=== PATIENT | female | born 1950 ===

== ENCOUNTER 2019-09-22 09:20 | Outpatient (REF) | payer MEDICARE, MEDICAID, SELFPAY ==
[2019-09-23 09:46] LABS: Absolute Basophil Count 0.04 k/cumm (0.0-0.2); Absolute Eosinophil Count 0.41 k/cumm (0.0-0.7); Absolute Lymphocyte Count 0.98 k/cumm (1.2-3.4); Absolute Monocyte Count 0.46 k/cumm (0.11-0.7); Absolute Neutrophil Count 4.38 k/cumm (1.2-6.7); Basophils % 0.6; Eosinophils % 6.5; HGB 11.8 g/dL (12.0-15.5); Immature Grans % 0.3 %; Lymphocytes % 15.6; Mean Corp. HGB Concentration 34.7 g/dL (32.0-36.0); Mean Corpuscular Volume 83.5 fL (80-95); Monocytes % 7.3; Neutrophils % 69.7; Platelet Count 224 x1000/uL (130-400); RBC 4.07 m/cumm (4.00-5.20); RBC Distribution Width 12.1 % (11.7-14.6); White Blood Cell Count 6.28 k/cumm (4.4-10.8)
[2019-09-23 09:47] LABS: Abs Immature Grans 0.02 k/cumm (0.0-0.09)
[2019-09-23 09:49] LABS: Albumin 2.8 g/dL (3.4-5.0); BUN 11 mg/dL (7-18); CREATININE 1.16 mg/dL (0.55-1.02); Estimated GFR 46.46 (mL/min/1.73m2); Glucose 111 mg/dL (74-106); Total Protein 6.5 g/dL (6.4-8.2)
[2019-09-23 09:50] LABS: Alkaline Phosphatase 84 U/L (46-116); Bilirubin, Total 0.5 mg/dL (0.2-1.0); Sodium 129 mmol/L (136-145)
[2019-09-23 09:51] LABS: ALT 30 U/L (14-59); AST 26 U/L (15-37); Anion Gap 9.3 mmol/L (3-11); CO2 27.7 mmol/L (21.0-32.0); Chloride 92 mmol/L (98-107); Potassium 2.4 mmol/L (3.5-5.1)
== END 2019-09-22 09:40 ==
LOC: LBN 09:20
PROVIDERS: PCP Nurse Practitioner Family; Visit Provider Nurse Practitioner Family
DX: R53.83 Other fatigue (principal); E87.6 Hypokalemia
CPT/HCPCS: 80053; 85025

== ENCOUNTER 2019-09-23 11:35 | Outpatient (REF) | payer MEDICARE, MEDICAID, SELFPAY ==
[2019-09-25 10:24] LABS: Campylobacter PCR Negative (Negative); Salmonella PCR Negative (Negative); Shiga Toxin PCR Negative (Negative); Shigella/Enteroinvasive Ecoli Negative (Negative)
== END 2019-09-23 11:55 ==
LOC: NCHCN 11:35
PROVIDERS: PCP Nurse Practitioner Family; Visit Provider Nurse Practitioner Family
DX: A08.4 Viral intestinal infection, unspecified (principal)
CPT/HCPCS: 87329; 87505; 87177; 87324

== ENCOUNTER 2019-09-28 12:44 | Outpatient (REF) | payer MEDICARE, MEDICAID, SELFPAY ==
[2019-09-28 20:54] LABS: HCT 34.6 % (36.0-46.0); HGB 11.7 g/dL (12.0-15.5); Mean Corp. HGB Concentration 33.8 g/dL (32.0-36.0); Mean Corpuscular Volume 85.6 fL (80-95); Mean Platelet Volume 9.7 fL (8.0-11.0); Platelet Count 316 x1000/uL (130-400); RBC 4.04 m/cumm (4.00-5.20); RBC Distribution Width 12.9 % (11.7-14.6); White Blood Cell Count 6.68 k/cumm (4.4-10.8)
[2019-09-28 21:08] LABS: ALT 30 U/L (14-59); AST 19 U/L (15-37); Albumin 2.6 g/dL (3.4-5.0); Alkaline Phosphatase 102 U/L (46-116); Anion Gap 10.2 mmol/L (3-11); BUN 13 mg/dL (7-18); Bilirubin, Total 0.6 mg/dL (0.2-1.0); CO2 22.8 mmol/L (21.0-32.0); CREATININE 1.64 mg/dL (0.55-1.02); Calcium 8.3 mg/dL (8.5-10.1); Chloride 96 mmol/L (98-107); Estimated GFR 31.15 (mL/min/1.73m2); Glucose 117 mg/dL (74-106); Potassium 4.7 mmol/L (3.5-5.1); Sodium 129 mmol/L (136-145); Total Protein 6.3 g/dL (6.4-8.2)
[2019-09-28 21:12] LABS: Absolute Lymphocyte Count 0.67 k/cumm (1.2-3.4); Absolute Monocyte Count 0.73 k/cumm (0.11-0.7); Absolute Neutrophil Count 4.34 k/cumm (1.2-6.7); Atypical Lymphocytes % 1
[2019-09-28 21:13] LABS: Absolute Eosinophil Count 0.94 k/cumm (0.0-0.7); Diff Comment Manual Differential; RBC Morphology Normal
[2019-09-28 21:48] LABS: Hemoglobin A1C 6.4 % (3.8-5.6)
== END 2019-09-28 13:04 ==
LOC: NCHCN 12:44
PROVIDERS: PCP Nurse Practitioner Family; Visit Provider Nurse Practitioner Family
DX: R73.9 Hyperglycemia, unspecified (principal); E87.6 Hypokalemia; R53.83 Other fatigue
CPT/HCPCS: 80053; 83036; 85025

== ENCOUNTER 2019-09-29 21:16 | Outpatient (REF) | payer MEDICARE, MEDICAID, SELFPAY ==
[2019-09-29 21:01] LABS: POTASSIUM,URINE RANDOM 22 mmol/L
[2019-09-29 21:22] LABS: COMMENT (LAB VIEW ONLY) 129.29 mg/dL; Prot/Crea Ur Ratio 0.46
== END 2019-09-29 21:36 ==
LOC: NCHCN 21:16
PROVIDERS: PCP Nurse Practitioner Family; Visit Provider Nurse Practitioner Family
DX: E87.6 Hypokalemia (principal); E87.1 Hypo-osmolality and hyponatremia
CPT/HCPCS: 82565; 84133; 84156

== ENCOUNTER 2019-10-04 11:55 | Outpatient (REF) | payer MEDICARE, MEDICAID, SELFPAY ==
[2019-10-04 19:03] LABS: POTASSIUM,URINE RANDOM 42 mmol/L
[2019-10-04 19:05] LABS: Anion Gap 12.5 mmol/L (3-11); BUN 50 mg/dL (7-18); CO2 18.5 mmol/L (21.0-32.0); Calcium 8.7 mg/dL (8.5-10.1); Chloride 98 mmol/L (98-107); Estimated GFR 11.71 (mL/min/1.73m2); Glucose 109 mg/dL (74-106); PROTEIN 99.4 mg/dL; Sodium 129 mmol/L (136-145)
[2019-10-04 19:25] LABS: COMMENT (LAB VIEW ONLY) 162.11 mg/dL; Prot/Crea Ur Ratio 0.61
[2019-10-04 19:34] LABS: CREATININE 3.83 mg/dL (0.55-1.02)
[2019-10-04 19:39] LABS: Potassium 6.3 mmol/L (3.5-5.1)
== END 2019-10-04 12:15 ==
LOC: NCHCN 11:55
PROVIDERS: PCP Nurse Practitioner Family; Visit Provider Nurse Practitioner Family
DX: R19.7 Diarrhea, unspecified (principal); E87.1 Hypo-osmolality and hyponatremia; E87.6 Hypokalemia
CPT/HCPCS: 80048; 82565; 84133; 84156

== ENCOUNTER 2019-10-14 14:44 | Outpatient (REF) | payer MEDICARE, MEDICAID, SELFPAY ==
[2019-10-14 20:54] LABS: Absolute Monocyte Count 0.65 k/cumm (0.11-0.7); Basophils % 0.5; HCT 28.7 % (36.0-46.0); HGB 9.1 g/dL (12.0-15.5); Mean Corp. HGB Concentration 31.7 g/dL (32.0-36.0); Mean Corpuscular Hemoglobin 28.4 pg (27.0-33.0); Mean Corpuscular Volume 89.7 fL (80-95); Mean Platelet Volume 8.7 fL (8.0-11.0); Platelet Count 309 x1000/uL (130-400); RBC Distribution Width 14.9 % (11.7-14.6); White Blood Cell Count 12.97 k/cumm (4.4-10.8)
[2019-10-14 21:02] LABS: ALT 13 U/L (14-59); AST 10 U/L (15-37); Albumin 2.4 g/dL (3.4-5.0); Alkaline Phosphatase 169 U/L (46-116); Anion Gap 4.7 mmol/L (3-11); BUN 12 mg/dL (7-18); Bilirubin, Total 0.3 mg/dL (0.2-1.0); CO2 27.3 mmol/L (21.0-32.0); CREATININE 1.44 mg/dL (0.55-1.02); Calcium 8.1 mg/dL (8.5-10.1); Chloride 101 mmol/L (98-107); Glucose 108 mg/dL (74-106); Potassium 3.1 mmol/L (3.5-5.1); Sodium 133 mmol/L (136-145); Total Protein 6.7 g/dL (6.4-8.2)
[2019-10-14 21:27] LABS: Absolute Basophil Count 0.06 k/cumm (0.0-0.2)
[2019-10-14 21:33] LABS: Absolute Neutrophil Count 5.06 k/cumm (1.2-6.7); Microcytosis 1+
[2019-10-14 21:34] LABS: Absolute Eosinophil Count 3.11 k/cumm (0.0-0.7); Absolute Lymphocyte Count 4.15 k/cumm (1.2-3.4); Atypical Lymphocytes % 14; Diff Comment Manual Differential
== END 2019-10-14 15:04 ==
LOC: NCHCN 14:44
PROVIDERS: PCP Nurse Practitioner Family; Visit Provider Nurse Practitioner Family
DX: N17.9 Acute kidney failure, unspecified (principal); D72.1 Eosinophilia
CPT/HCPCS: 80053; 85025

== ENCOUNTER 2019-10-20 15:14 | Outpatient (REF) | payer MEDICARE, MEDICAID, SELFPAY ==
[2019-10-20 20:31] LABS: Abs Immature Grans 0.03 k/cumm (0.0-0.09); Absolute Eosinophil Count 3.15 k/cumm (0.0-0.7); Absolute Lymphocyte Count 3.32 k/cumm (1.2-3.4); Absolute Monocyte Count 0.56 k/cumm (0.11-0.7); Absolute Neutrophil Count 3.05 k/cumm (1.2-6.7); Eosinophils % 30.9; HCT 27.9 % (36.0-46.0); HGB 8.5 g/dL (12.0-15.5); Immature Grans % 0.3 %; Lymphocytes % 32.5; Mean Corp. HGB Concentration 30.5 g/dL (32.0-36.0); Mean Corpuscular Hemoglobin 28.2 pg (27.0-33.0); Mean Corpuscular Volume 92.7 fL (80-95); Mean Platelet Volume 8.8 fL (8.0-11.0); Monocytes % 5.5; Neutrophils % 29.8; Platelet Count 363 x1000/uL (130-400); RBC 3.01 m/cumm (4.00-5.20); RBC Distribution Width 15.4 % (11.7-14.6); White Blood Cell Count 10.21 k/cumm (4.4-10.8)
[2019-10-20 20:38] LABS: ALT 15 U/L (14-59); AST 16 U/L (15-37); Albumin 2.7 g/dL (3.4-5.0); Alkaline Phosphatase 130 U/L (46-116); Anion Gap 7.3 mmol/L (3-11); BUN 9 mg/dL (7-18); Bilirubin, Total 0.2 mg/dL (0.2-1.0); CO2 29.7 mmol/L (21.0-32.0); CREATININE 1.34 mg/dL (0.55-1.02); Calcium 8.2 mg/dL (8.5-10.1); Chloride 104 mmol/L (98-107); Estimated GFR 39.33 (mL/min/1.73m2); Glucose 98 mg/dL (74-106); Potassium 3.5 mmol/L (3.5-5.1); Sodium 141 mmol/L (136-145); Total Protein 6.9 g/dL (6.4-8.2)
[2019-10-20 21:48] LABS: Diff Comment Diff Reviewed
[2019-10-20 21:49] LABS: RBC Morphology Normal
== END 2019-10-20 15:34 ==
LOC: NCHCN 15:14
PROVIDERS: PCP Nurse Practitioner Family; Visit Provider Nurse Practitioner Family
DX: N17.9 Acute kidney failure, unspecified (principal); D72.1 Eosinophilia
CPT/HCPCS: 80053; 85025

== ENCOUNTER 2019-10-27 13:44 | Outpatient (REF) | payer MEDICARE, MEDICAID, SELFPAY ==
[2019-10-27 20:19] LABS: Abs Immature Grans 0.02 k/cumm (0.0-0.09); Absolute Basophil Count 0.09 k/cumm (0.0-0.2); Absolute Eosinophil Count 1.48 k/cumm (0.0-0.7); Absolute Lymphocyte Count 2.58 k/cumm (1.2-3.4); Absolute Monocyte Count 0.64 k/cumm (0.11-0.7); Absolute Neutrophil Count 3.05 k/cumm (1.2-6.7); Basophils % 1.1; Eosinophils % 18.8; HCT 25.4 % (36.0-46.0); Immature Grans % 0.3 %; Lymphocytes % 32.8; Mean Corp. HGB Concentration 31.5 g/dL (32.0-36.0); Mean Corpuscular Hemoglobin 29.2 pg (27.0-33.0); Mean Corpuscular Volume 92.7 fL (80-95); Mean Platelet Volume 8.8 fL (8.0-11.0); Monocytes % 8.1; Neutrophils % 38.9; Platelet Count 411 x1000/uL (130-400); RBC 2.74 m/cumm (4.00-5.20); RBC Distribution Width 15.7 % (11.7-14.6); White Blood Cell Count 7.86 k/cumm (4.4-10.8)
[2019-10-27 20:28] LABS: Iron 34 ug/dL (50-170); Total Iron Binding Capacity 206 ug/dL (250-450); Transferrin Sat 17 % (15-50)
[2019-10-27 21:07] LABS: Anion Gap 8.8 mmol/L (3-11); BUN 8 mg/dL (7-18); CO2 26.2 mmol/L (21.0-32.0); CREATININE 1.28 mg/dL (0.55-1.02); Calcium 8.1 mg/dL (8.5-10.1); Chloride 105 mmol/L (98-107); Estimated GFR 41.47 (mL/min/1.73m2); Ferritin 178 ng/mL (8-252); Glucose 101 mg/dL (74-106); Potassium 3.1 mmol/L (3.5-5.1); Sodium 140 mmol/L (136-145); Vitamin B12 270 pg/mL (193-986)
[2019-10-27 21:12] LABS: ESR 42 mm/hr (0-30)
[2019-10-27 22:36] LABS: C-Reactive Protein 0.32 mg/dL (0.0-0.3)
[2019-10-31 16:03] LABS: c-ANCA Negative (Negative); p-ANCA Negative (Negative)
== END 2019-10-27 14:04 ==
LOC: NCHCN 13:44
PROVIDERS: PCP Nurse Practitioner Family; Visit Provider Internal Medicine
DX: D64.9 Anemia, unspecified (principal); D72.1 Eosinophilia; N17.9 Acute kidney failure, unspecified
CPT/HCPCS: 80048; 85652; 82607; 82728; 83540; 83550; 85025; 85045; 86140; 86160; 86255

== ENCOUNTER 2019-11-03 14:30 | Outpatient (REF) | payer MEDICARE, MEDICAID, SELFPAY ==
[2019-11-03 20:23] LABS: Abs Immature Grans 0.01 k/cumm (0.0-0.09); Absolute Basophil Count 0.04 k/cumm (0.0-0.2); Absolute Eosinophil Count 0.73 k/cumm (0.0-0.7); Absolute Lymphocyte Count 2.61 k/cumm (1.2-3.4); Absolute Monocyte Count 0.55 k/cumm (0.11-0.7); Absolute Neutrophil Count 3.34 k/cumm (1.2-6.7); Basophils % 0.5; HCT 26.4 % (36.0-46.0); Immature Grans % 0.1 %; Lymphocytes % 35.9; Mean Corp. HGB Concentration 30.3 g/dL (32.0-36.0); Mean Corpuscular Volume 92.3 fL (80-95); Mean Platelet Volume 8.9 fL (8.0-11.0); Monocytes % 7.6; Neutrophils % 45.9; Platelet Count 356 x1000/uL (130-400); RBC 2.86 m/cumm (4.00-5.20); RBC Distribution Width 16.2 % (11.7-14.6); White Blood Cell Count 7.28 k/cumm (4.4-10.8)
[2019-11-03 20:49] LABS: Anion Gap 7.9 mmol/L (3-11); BUN 8 mg/dL (7-18); CO2 26.1 mmol/L (21.0-32.0); CREATININE 1.18 mg/dL (0.55-1.02); Calcium 8.2 mg/dL (8.5-10.1); Chloride 105 mmol/L (98-107); Estimated GFR 45.55 (mL/min/1.73m2); Glucose 86 mg/dL (74-106); LDH 198 U/L (81-234); Sodium 139 mmol/L (136-145)
[2019-11-03 20:53] LABS: Hypochromasia 1+; Microcytosis 1+; Potassium 2.9 mmol/L (3.5-5.1)
[2019-11-07 12:39] LABS: Haptoglobin 197 mg/dL (32-197)
[2019-11-07 14:47] LABS: Albumin 48.3 % (55.8-66.1); Comment (See Note); Total Protein 6.4 g/dL (6.3-8.2)
[2019-11-07 15:15] LABS: Immunotyping, Serum (See Note)
== END 2019-11-03 14:50 ==
LOC: NCHCN 14:30
PROVIDERS: PCP Nurse Practitioner Family; Visit Provider Internal Medicine
DX: D64.9 Anemia, unspecified (principal); D72.1 Eosinophilia; N17.9 Acute kidney failure, unspecified; R73.03 Prediabetes; E87.6 Hypokalemia
CPT/HCPCS: 80048; 83010; 83615; 84165; 85025; 86320

== ENCOUNTER 2020-01-09 10:30 | Outpatient (REF) | payer MEDICARE, MEDICAID, SELFPAY ==
[2020-01-10 13:27] LABS: Anion Gap 7.2 mmol/L (3-11); BUN 9 mg/dL (7-18); CO2 26.8 mmol/L (21.0-32.0); CREATININE 1.22 mg/dL (0.55-1.02); Calcium 9.1 mg/dL (8.5-10.1); Chloride 105 mmol/L (98-107); Estimated GFR 43.83 (mL/min/1.73m2); Glucose 91 mg/dL (74-106); Potassium 4.1 mmol/L (3.5-5.1); Sodium 139 mmol/L (136-145)
== END 2020-01-09 10:50 ==
LOC: NCHCN 10:30
PROVIDERS: PCP Nurse Practitioner Family; Visit Provider Nurse Practitioner Family
DX: E87.6 Hypokalemia (principal); R73.03 Prediabetes; D64.9 Anemia, unspecified
CPT/HCPCS: 80048; 83880

== ENCOUNTER 2020-01-27 10:36 | Outpatient (REF) | payer MEDICARE, MEDICAID, SELFPAY ==
[2020-01-27 20:47] LABS: Anion Gap 9.6 mmol/L (3-11); BUN 9 mg/dL (7-18); CO2 28.4 mmol/L (21.0-32.0); CREATININE 1.14 mg/dL (0.55-1.02); Calcium 9.2 mg/dL (8.5-10.1); Chloride 107 mmol/L (98-107); Glucose 96 mg/dL (74-106); Magnesium 2.2 mg/dL (1.8-2.4); Potassium 3.6 mmol/L (3.5-5.1); Sodium 145 mmol/L (136-145)
== END 2020-01-27 10:56 ==
LOC: NCHCN 10:36
PROVIDERS: PCP Nurse Practitioner Family; Visit Provider Nurse Practitioner Family
DX: D64.9 Anemia, unspecified (principal); R19.7 Diarrhea, unspecified; E87.6 Hypokalemia; R73.03 Prediabetes
CPT/HCPCS: 80048; 83735